=== PATIENT | female | born 1950 | race Caucasian/White ===

== ENCOUNTER → 2016-06-21 | Outpatient (CLI) | payer MEDICARE ==
[~2016-06-21] VITALS: Ht 162.6 cm; Wt 72.6 kg
[~2016-06-21] MED LIST: LISI10TA2 PO; REGADENOSON 0.4 MG/5 ML DISP.SYRIN. IV ONE
--- NOTE | 2016-06-21 13:28 | CARD ---
APPROVED REPORT EXAM: Two-dimensional and M-mode echocardiogram with Doppler and color Doppler. Other Information Quality : GoodHR: 62bpm Rhythm : NSR INDICATION Abnormal ECG RISK FACTORS Hypertension Hyperlipidemia Family History Smoking 2D DIMENSIONS RVDd2.5 (2.9-3.5cm)Left Atrium(2D)4.3 (1.6-4.0cm) IVSd1.4 (0.7-1.1cm)Aortic Root(2D)2.6 (2.0-3.7cm) LVDd4.5 (3.9-5.9cm)LVOT Diameter2.2 (1.8-2.4cm) PWd1.4 (0.7-1.1cm)LVDs3.8 (2.5-4.0cm) FS (%) 16.0 %SV31.8 ml LVEF(%)33.9 (>50%) Aortic Valve AoV Peak Rudolph.186.9cm/sAoV VTI36.7cm AO Peak GR.14.0mmHgLVOT Peak Rudolph.109.9cm/s AO Mean GR.6mmHgAVA (VMAX)2.20cm2 Mitral Valve MV E Zktbxifp34.5cm/sMV E Peak Gr.5mmHg MV DECEL [id number] A Yxmmgaat168.4cm/s MV E Mean Gr.2mmHgE/A Ratio0.8 MV A Kgjazllz47mg Pulmonary Valve PV Peak Rldnjdqd546.0cm/s Tricuspid Valve TR P. Ddbirpbs766eb/sTR Peak Gr.21mmHg Pulmonary Vein S1 Sidjkvlu59.0cm/sD2 Knjurlgz24.1cm/s PVa [id number] LEFT VENTRICLE The left ventricle is normal size. There is mild concentric left ventricular hypertrophy. Left ventri rick systolic function is low normal. The Ejection Fraction is 50%. There is mild global hypokinesis o f the left ventricle. Transmitral Doppler flow pattern is Grade I-abnormal relaxation pattern. No lef t ventricle thrombus noted on this study. RIGHT VENTRICLE The right ventricle is normal size. There is normal right ventricular wall thickness. The right ventr icular systolic function is normal. ATRIA The left atrium size is normal. The interatrial septum is intact with no evidence for an atrial septa l defect or patent foramen ovale as noted on 2-D or Doppler imaging. AORTIC VALVE The aortic valve is mildly sclerotic. The aortic valve is trileaflet. Doppler and Color Flow revealed no significant aortic regurgitation. There is no significant aortic valvular stenosis. MITRAL VALVE Mitral annular calcification is mild. The mitral valve leaflets are thickened. There is no evidence o f mitral valve prolapse. There is no mitral valve stenosis. Doppler and Color Flow revealed mild mitr al regurgitation. TRICUSPID VALVE Doppler and Color Flow revealed trace tricuspid regurgitation. The pulmonary artery systolic pressure is estimated at 24 mmHg. There is no pulmonary hypertension. PULMONIC VALVE Doppler and Color Flow revealed trace pulmonic valvular regurgitation. There is no pulmonic valvular stenosis. GREAT VESSELS The aortic root is normal in size. The ascending aorta is normal in size. The IVC is normal in size a nd collapses >50% with inspiration. PERICARDIAL EFFUSION There is no evidence of significant pericardial effusion. Critical Notification Critical Value: No <Conclusion> Left ventricle systolic function is low normal. The Ejection Fraction is 50%. There is mild global hypokinesis of the left ventricle.
--- NOTE | 2016-06-21 13:31 | RAD ---
APPROVED REPORT Test Type: Pharmacological Stress Nurse/Tech: Carla Jolley R.N. Test Indications: Abnormal EKG Cardiac History: HTN Medications: SEE EMR Medical History: SEE EMR Resting ECG: SB with BBB Resting Heart Rate: 52 bpm Resting Blood Pressure: 158/72mmHg Pretest Chest Pain: None Nurse/Tech Notes S1S2, lungs CTA, denied chest pain or SOA. Consent: The procedure was explained to the patient in lay terms. Informed consent was witnessed. Mazin eout was entered into [employer]. History and Stress Test performed by Carla Jolley R.N. Pharm. Details Pharmacologic stress testing was performed using 0.4mg per 5ml of regadenoson given intravenously ove r 7-10 seconds. Stress Symptoms None reported. POST EXERCISE Reason for Termination: Infusion complete Max HR: 98 bpm Max Blood Pressure: 146/69mmHg Blood Pressure response to exercise: Normal blood pressure response during stress. Heart Rate response to exercise: Normal Chest Pain: No. Arrhythmia: No. ST Change: No. INTERPRETATION Stress EKG Conclusion: No acute changes were noted. Imaging Protocol IMAGE PROTOCOL: Rest Tc-99m/stress Tc-99m 1 day Rest: Stress: Viability: Radiopharm.Tc99m RsgzoiuzeAd88r Sestamibi Dose12.3mCi 36.4mCi Duration 15min. 10min. Img Date 06/21/2016 06/21/2016 Inj-Img Epub45ukr. 60min. Rest Admin Site:IV - Right ForearmAdministrator:BEBETO Torres Stress Admin Site: IV - Right ForearmAdministrator: BEBETO Torres STRESS DATA End Diast. Vol.107.0mlAv. Heart Rate60.0bpm End Syst. Vol.36.0mlCO Index BSA0.0L/min Myocardial Fysx511.0gEject. Bfhkqask00.0% Stress Rates Pk. Fill Rate2.15EDV/secLVtime Pk. Fill 116.03msec Pk. Empty Rate2.59ESV/secLVtime Pk. Vsufi961.31msec 04/05 Pk. Fill1.54EDV/sec Stress Scores Regional WT1.00Summed WT8.00 Regional WM0.00Summed WM4.00 The rest and stress images show normal perfusion, normal contraction and thickening. LV Perf. Quant 17 Seg. SSS0.00 17 Seg. SRS3.00 17 Seg. SDS0.00 Stress Defect Extent (% LAD)0.00Rest Defect Extent (% LAD)1.30Rev. Defect Extent (% LAD)0.00 Stress Defect Extent (% LCX) 13.80Rest Defect Extent (% LCX)16.30Rev. Defect Extent (% LCX)0.00 Stress Defect Extent (% RCA)0.00Rest Defect Extent (% RCA)0.00Rev. Defect Extent (% RCA)0.00 Stress Defect Extent (% MARION)2.40Rest Defect Extent (% MARION)4.60Rev. Defect Extent (% MARION)0.00 Other Information Quality:Average Risk Assessment: Low Risk Conclusion 1. Non-diagnositic EKG due to LBBB 2. Normal myocardial perfusion at stress/rest. 3. Low risk study. EF > 66%
== END | disposition home or self-care (01) ==
LOC: ECHO 08:33
PROVIDERS: ATTEND Internal Medicine Cardiovascular Disease
DX: R94.31 Abnormal electrocardiogram [ECG] [EKG] (principal); I10 Essential (primary) hypertension; Z87.891 Personal history of nicotine dependence; I34.0 Nonrheumatic mitral (valve) insufficiency; I07.1 Rheumatic tricuspid insufficiency
CPT/HCPCS: 78452; 93017; 93306; 96374; 96375; 96376; A9500; J2785

== ENCOUNTER → 2017-04-11 | Outpatient (CLI) | payer BC | END | disposition home or self-care (01) | LOC: PCVCCLINIC 14:11 | DX: I25.10 Atherosclerotic heart disease of native coronary artery without angina pectoris (principal); I44.7 Left bundle-branch block, unspecified; E78.00 Pure hypercholesterolemia, unspecified; Z79.82 Long term (current) use of aspirin; Z79.899 Other long term (current) drug therapy; Z87.891 Personal history of nicotine dependence | CPT/HCPCS: 36415; 93005; G0463 ==

== ENCOUNTER → 2017-08-08 | Outpatient (CLI) | payer BC | END | disposition home or self-care (01) | LOC: PCVCCLINIC 13:55 | DX: I25.10 Atherosclerotic heart disease of native coronary artery without angina pectoris (principal); I10 Essential (primary) hypertension; E78.00 Pure hypercholesterolemia, unspecified; R94.31 Abnormal electrocardiogram [ECG] [EKG]; Z79.82 Long term (current) use of aspirin; Z79.899 Other long term (current) drug therapy; Z87.891 Personal history of nicotine dependence | CPT/HCPCS: 93005; G0463 ==

== ENCOUNTER → 2017-08-15 | Outpatient (CLI) | payer BC ==
[~2017-08-15] MED LIST changes: +DIAZEPAM 10 MG TABLET.; +IOHEXOL 350 MG/ML 100 ML VIAL.; +IOHEXOL 350 MG/ML 50 ML VIAL.; +IV NORMAL SALINE 500ML BAG 500 ML; +LIDOCAINE 1% Multi-Dose 50 ML VIAL.; -LISI10TA2 PO; +MIDAZOLAM HCL/PF 2 MG/2 ML VIAL.; +ONDANSETRON PF 4 MG/2 ML VIAL.; -REGADENOSON 0.4 MG/5 ML DISP.SYRIN. IV ONE; +fentaNYL PF VIAL 100 MCG/2 ML VIAL; +hydrALAZINE 20 MG/ML VIAL.
== END | disposition home or self-care (01) ==
LOC: PCVCINTER 11:20
DX: I70.1 Atherosclerosis of renal artery (principal); I25.10 Atherosclerotic heart disease of native coronary artery without angina pectoris; I70.0 Atherosclerosis of aorta; I25.2 Old myocardial infarction
CPT/HCPCS: 36252; 75630; 76937; 93458; 99152; 99153; C1751; C1760; C1769; C1894; J0360; J1644; J2250; J2405; J3010; J7040; Q9967

== ENCOUNTER → 2018-02-02 | Outpatient (CLI) | payer BC ==
[~2018-02-02] MED LIST changes: -DIAZEPAM 10 MG TABLET.; -IOHEXOL 350 MG/ML 100 ML VIAL.; -IOHEXOL 350 MG/ML 50 ML VIAL.; -IV NORMAL SALINE 500ML BAG 500 ML; -LIDOCAINE 1% Multi-Dose 50 ML VIAL.; +LISI10TA2 PO; -MIDAZOLAM HCL/PF 2 MG/2 ML VIAL.; -ONDANSETRON PF 4 MG/2 ML VIAL.; -fentaNYL PF VIAL 100 MCG/2 ML VIAL; -hydrALAZINE 20 MG/ML VIAL.
--- NOTE | 2018-02-02 12:04 | PCVCIMAG ---
APPROVED REPORT Study performed: 02/02/2018 08:03:04 EXAM: Comprehensive 2D, Doppler, and color-flow Echocardiogram Patient Location: Echo lab Room #: 2Status: routine BSA: 1.80 HR: 54 bpmBP: 142/76 mmHg Rhythm: LBBB Other Information Study Quality: Good Risk Factors: Cardiac Risk Factors: HTN, Hyperlipidemia, Smoking-prior Indications CAD Fatigue Hypertension/HDD Hx CABG,Stents 2D Dimensions IVSd: 12.85 (7-11mm)LVOT Diam: 19.83 (18-24mm) LVDd: 45.86 mm PWd: 10.08 (7-11mm)Ascending Ao: 31.89 (22-36mm) LVDs: 31.08 (25-40mm) Left Atrium: 33.89 (27-40mm) Aortic Root: 24.33 mm LV Single Plane 4CH: 44.55 % LV Single Plane 2CH: 63.75 % Biplane EF: 54.6 % Volumes Left Atrial Volume (Systole) Single Plane 4CH: 46.65 mLSingle Plane 2CH: 55.80 mL Biplane LA Volume: 51.00 mLLA ESV Index: 29.00 mL/m2 Aortic Valve AoV Peak Rudolph.: 1.65 m/s AO Peak Gr.: 10.95 mmHgLVOT Max P.70 mmHg LVOT Max V: 0.82 m/s CURRY Vmax: 1.53 cm2 Mitral Valve E/A Ratio: 0.6 MV Decel. Time: 287.35 ms MV E Max Rudolph.: 0.64 m/s MV A Rudolph.: 1.14 m/s IVRT: 128.03 ms TDI E/Lateral E': 21.33E/Medial E': 21.33 Medial E' Rudolph.: 0.03 m/s Lateral E' Rudolph.: 0.03 m/s Pulmonary Valve PV Peak Rudolph.: 1.03 m/sPV Peak Gr.: 4.27 mmHg Pulmonary Vein P Vein S: 0.40 m/sP Vein A: 0.26 m/s P Vein D: 0.32 m/sP Vein A Dur.: 138.4 msec P Vein S/D Ratio: 1.25 Tricuspid Valve TR Peak Rudolph.: 2.47 m/s TR Peak Gr.: 24.32 mmHg TV Vmax: 0.69 m/sPA Pressure: 31.00 mmHg Left Ventricle The left ventricle is normal size. Septal wall motion abnormality consistent with a LBBB. Borderline concentric left ventricular hypertrophy. Left ventricular systolic function is normal. The left ventricular ejection fraction is within the normal range. LVEF is 50-55%. Grade I - abnormal relaxation pattern. Right Ventricle The right ventricle is normal size. The right ventricular systolic function is normal. Atria The left atrium size is normal. The right atrium size is normal. Aortic Valve Aortic valve is trileaflet. The Aortic valve is minimally sclerotic. No aortic regurgitation is present. There is no aortic valvular stenosis. Mitral Valve Mild mitral annular calcification. There is no mitral valve regurgitation noted. No evidence of mitral valve stenosis. Tricuspid Valve The tricuspid valve is normal in structure. Mild tricuspid regurgitation with a PA pressure of 31 mmHg Mild pulmonary hypertension.. Pulmonic Valve The pulmonary valve is normal in structure. There is no pulmonic valvular regurgitation. Great Vessels The aortic root is normal in size. The ascending aorta is normal in size. Aortic arch is normal in caliber. IVC is normal in size and collapses >50% with inspiration. Pericardium There is no pericardial effusion. There is no pleural effusion. <Conclusion> The left ventricle is normal size. Left ventricular systolic function is normal. Grade I - abnormal relaxation pattern. The right ventricle is normal size. The left atrium size is normal. There is no aortic valvular stenosis. There is no mitral valve regurgitation noted. Mild tricuspid regurgitation with a PA pressure of 31 mmHg
== END | disposition home or self-care (01) ==
LOC: PCVCIMAG 08:06
PROVIDERS: ATTEND Internal Medicine Cardiovascular Disease
DX: I25.10 Atherosclerotic heart disease of native coronary artery without angina pectoris (principal); I10 Essential (primary) hypertension; I07.1 Rheumatic tricuspid insufficiency
CPT/HCPCS: 93306

== ENCOUNTER → 2018-08-31 | Outpatient (CLI) | payer BC ==
[~2018-08-31] MED LIST changes: +REGADENOSON 0.4 MG/5 ML DISP.SYRIN. IV ONE
--- NOTE | 2018-08-31 13:02 | PCVCIMAG ---
APPROVED REPORT Imaging Protocol: Rest Tc-99m/Stress Tc-99m 1 day Study performed: 08/31/2018 09:24:33 Indication: CAD, LBBB Patient Location: Out-Patient Stress Nurse: Krysten Martinez RN, Areli Whitehead RN SC Tech:MAURI FeltonMT Ht: 5 ft 5 in Wt: 164 lbs BSA: 1.82 m2 HR: 53 bpm BP: 185/74 mmHg BMI: 27.28 Rhythm: Sinus Bradycardia, LBBB Medical History Medical History: HTN, Hyperlipidemia, Former Smoker, [place] Medications: Atorvastatin, Carvedilol, Plavix, Pepcid, Lisinopril, Isosorbide Allergies: No known drug allergies Cardiac Risk Factors: Age Previous Cardiac Procedures: 2018 CABG X4, 2017 Prox Circ, L Main stent disection Pretest Chest Pain Characteristics: No chest pain Exercise History: Sedentary Meds Held (24 hrs): Carvedilol, , Isosorbide Resting Data Rest SPECT myocardial perfusion imaging was performed in supine position 45 minutes following the intravenous injection of 10.8 mCi of Tc-99m Sestamibi. Time of rest injection: 914 Date: 08/31/2018 Administration Route: IV Administration Site: Right AC Pharmacologic Stress Pharmacologic stress test was performed by injecting Regadenoson 0.4 mg IV push over 10-15 seconds immediately followed by the intravenous injection of 34 mCi of Tc-99m Sestamibi. Time of stress injection: 1015 Date: 08/31/2018 Administration Route: IV Administration Site: Right AC Gated Stress SPECT was performed 45 minutes after stress injection. The images were gated to evaluate regional wall motion and calculate left ventricular ejection fraction. Stress Test Details Stress Test: Pharmacologic stress testing performed using 0.4 mg of regadenoson per 5 mL given IV over 10 seconds. Reason for pharmacologic stress test: physical limitation, LBBB. HRMax Heart Rate (APMHR): 153 bpm Resting HR: 53 bpmTarget HR (85% APMHR): 130 bpm Max HR Achieved: 91 bpm % of APMHR: 59 Recovery HR: 78 bpm BP Resting BP: 185/74 mmHg Max BP: 199/75 mmHg Recovery BP: 167/72 mmHg ECG Resting ECG: Sinus Bradycardia, LBBB Stress ECG: Sinus Rhythm, LBBB ST Change: Nondiagnostic LBBB Arrhythmia: VPC's Recovery ECG: Sinus Rhythm, LBBB Clinical Reason for Termination: Completed protocol Stress Symptoms: Dyspnea, Dizziness Exercise duration: 0 min 55 sec Symptoms resolved with caffeine. Study Quality Study: Good Artifact: Mild Breast artifact Study Data Post stress, the left ventricular ejection was 53%.. SSS: 11 SRS: 13 SDS: 0 TID = 1.02. Perfusion There is a medium area of mildly reduced uptake in the mid and apical segment of the anterior wall which is seen on the stress images as well as the resting images. This area thickens and moves normally and is most consistent with attenuation artifact. There is a small area of mildly reduced uptake in the mid segment of the lateral wall which is seen on the stress images as well as the resting images. This area thickens and moves normally and is most consistent with myocardial scar. Wall Motion Normal left ventricular wall motion. Nuclear Conclusion ECG Findings: non-diagnostic Clinical Findings: non-diagnostic Nuclear Findings: negative for ischemia Exercise Capacity: not assessed Left Ventricular Function: normal There is a mild fixed defect in the mid lateral wall, consistent with a nontransmural infarct. There is a mildly fixed anterior defect, with normal wall motion consistent with attenuation artifact. There is normal global LV systolic function.
== END | disposition home or self-care (01) ==
LOC: PCVCIMAG 08:53
PROVIDERS: ATTEND Internal Medicine Cardiovascular Disease
DX: I25.10 Atherosclerotic heart disease of native coronary artery without angina pectoris (principal); I44.7 Left bundle-branch block, unspecified; R07.9 Chest pain, unspecified
CPT/HCPCS: 78452; 93017; A9500; J2785